=== PATIENT | male | born 1960 ===

== ENCOUNTER 2018-03-25 07:09 | Day surgery (SDC) | payer OTHER ==
[~2018-03-25 07:09] MED LIST: LISINOPRIL10 MG PO; METFORMIN HCL1000 M1 PO; METFORMIN HCL500 MG PO
== END 2018-03-25 13:10 | disposition home or self-care (01) ==
LOC: AMB-ENDOS 07:09
DX: D12.3 Benign neoplasm of transverse colon (principal); K64.1 Second degree hemorrhoids